=== PATIENT | female | born 1980 ===

== ENCOUNTER 2021-01-11 15:59 | Emergency (ER) | payer SELFPAY ==
[~2021-01-11] VITALS: Ht 154.9 cm; Wt 52.0 kg
--- NOTE | 2021-01-11 17:02 | NUR ---
aids social worker note: Pt to room from lobby.
--- NOTE | 2021-01-11 17:07 | NUR ---
PT TO ROOM. LYING ON GURNEY IN POSITION, STATES THAT'S COMFORTABLE FOR HER. PULSE OX IN PLACE, WARM BLANKET PROVIDED.
[2021-01-11 17:11] VITALS: BP 132/64
--- NOTE | 2021-01-11 17:34 | NUR ---
LABS ORDERED, AWAITING RESULTS.
[2021-01-11 18:06] LABS: ALBUMIN 3.7 g/dL (3.4-5.0); ANION GAP 11 mmol/L (5-15); CALCIUM 8.3 mg/dL (8.5-10.1); CHLORIDE 107 mmol/L (98-107); CREATININE 0.54 mg/dL (0.55-1.02)
--- NOTE | 2021-01-11 18:29 | NUR ---
PT'S SISTER CALLED ATTEMPTING TO LOCATE HER. PT PROVIDED PERMISSION TO GIVE INFORMATION BUT ASSISTED IN CALLING SISTER WITH HER CELLPHONE. PT CRYING, UPSET STATING "I'VE NEVER DONE THIS BEFORE, I'M SO SORRY". PT SPEAKING ON PHONE WITH SISTER NOW. CALL LIGHT WITHIN REACH.
--- NOTE | 2021-01-11 18:33 | NUR ---
LAB RESULTS BACK, PT FOR RECHECK.
--- NOTE | 2021-01-11 19:05 | NUR ---
PT SITTING ON FLOOR CRYING. DOES NOT ACKNOWLEDGE STAFF.
[2021-01-11 19:36] LABS: BASOPHILS % (AUTO) 0 % (0-1); EOSINOPHILS % (AUTO) 0 % (1-7); LYMPHOCYTES % (AUTO) 10 % (22-44); MEAN CORPUSCULAR HEMOGLOBIN 32.8 pg (27.0-34.8); MEAN CORPUSCULAR HGB CONC 32.7 g/dL (32.4-35.8); MEAN PLATELET VOLUME 8.2 fL (7.4-10.4); MONOCYTES % (AUTO) 3 % (2-9); NEUTROPHILS % (AUTO) 86 % (42-75); PLATELET COUNT 243 x10^3/uL (130-400); RED BLOOD COUNT 4.17 x10^6/uL (3.82-5.3); RED CELL DISTRIBUTION WIDTH 12.3 % (9.6-15.2)
--- NOTE | 2021-01-11 19:38 | NUR ---
dr garcia at bs for exam. pt ambulatory to restroom for u/a. obtained & sent.
[2021-01-11 19:47] LABS: SALICYLATE LEVEL 2.5 mg/dL (2.8-20.0)
[2021-01-11 20:03] LABS: AMPHETAMINE SCREEN, URINE Negative (Negative); BARBITURATE SCREEN, URINE Negative (Negative); BENZODIAZEPINE SCREEN, URINE Negative (Negative); CANNABINOID SCREEN, URINE Positive (Negative); COCAINE SCREEN, URINE Negative (Negative); METHADONE SCREEN, URINE Negative (Negative); OPIATE SCREEN, URINE Negative (Negative)
--- NOTE | 2021-01-11 21:35 | NUR ---
Note natacha in EDM - 01/11/21 at 2137 by TSHUTES pt becoming upset..."i asked you 5 hours ago for something for my head". informed pt that no order has been placed for meds. pt given water & crackers. . sitter remains outside of room. will ctm.
--- NOTE | 2021-01-11 21:37 | NUR ---
pt given dc inst & rx. verbalizes understanding. pt resting on cart.. pending ride.
--- NOTE | 2021-01-11 21:38 | NUR ---
have spoken to popeye who is a "long time friend" and she is coming to get the pt. pt in position, tearful. lights turned down. will ctm.
--- NOTE | 2021-01-11 22:38 | NUR ---
PT SLEEPING ON CART, RR EVEN NON LABORED. WILL CTM.
== END 2021-01-11 22:59 | disposition home or self-care (01) ==
LOC: ED 16:20
DX: F10.220 Alcohol dependence with intoxication, uncomplicated (principal); D64.9 Anemia, unspecified; Y90.0 Blood alcohol level of less than 20 mg/100 ml
CPT/HCPCS: 36415; 80048; 80299; 80307; 80320; 80329; 82040; 84703; 85025; 99283; G0480